=== PATIENT | female | born 1950 | race African-American/Black ===

== ENCOUNTER 2017-02-06 10:32 | Emergency (ER) | payer MEDICAID, OTHER ==
[~2017-02-06] VITALS: Ht 154.9 cm; Wt 49.0 kg
[~2017-02-06 10:32] MED LIST: ALBUTEROL SULF8.5 GM INH; AMOXICILLIN500 MG ORAL; CELEBREX100 MG ORAL; CEPHALEXIN500 MG ORAL; CYCLOBENZAPRINE10 MG ORAL; GENTAK5 ML RIGHT EYE; IBUPROFEN600 MG ORAL; NEURONTIN400 MG ORAL; NITROFURANTOIN100 M2 ORAL; NITROFURANTOIN100 MG PO; PHENAZOPYRIDIN200 MG ORAL; PROMETHAZI6.25 MG/1 ORAL; ROBAXIN-750750 MG PO; TRAMADOL HCL50 MG ORAL; VENTOLIN HFA18 GM INH; ZOLPIDEM TARTRA10 MG ORAL
[2017-02-06] MEDS ORDERED: Ketorolac 60mg Inj IM ONE (11:00)
[2017-02-06 11:26] VITALS: BP 109/72
[2017-02-06] MEDS ORDERED: Methocarbamol 750mg tab ORAL ONE (12:15)
[2017-02-06] MEDS ORDERED: IBUPROFEN600 MG ORAL (12:50)
[2017-02-06] MEDS ORDERED: ROBAXIN-750750 MG PO (12:50)
[2017-02-06 13:00] VITALS: BP 112/75
--- NOTE | 2017-02-06 13:10 | Emergency Room Report ---
History of Present Illness General Chief Complaint: Back Injury Present Illness HPI The patient is a 66-year-old female presenting for lower back pain which began 4 days prior. The patient states that she has been doing a lot of heavy lifting at home and thinks this has provoking pain. She denies any known injury. Pain is described as a 10 out of 10 sharp sensation to the lower back and does not radiate. Pain worse with movement such as bending over. She denies previous injury to the back. She has not tried any medications. She denies any other symptoms including N, V, F, chills, numbness/tingling Allergies: Coded Allergies: CODEINE (Verified Allergy, Unknown, migraine, 05/20/15) Patient History Past Medical History: see triage record Pertinent Family History: none Reviewed Nursing Documentation: PMH: Agreed, PSxH: Agreed Nursing Documentation-PMH Hx Hypertension: No - back injuries multiple Hx Pacemaker: No Hx Asthma: Yes - sleep apnea Hx COPD: No Hx Diabetes: No Hx Cancer: No Hx Gastrointestinal Problems: No Hx Cerebrovascular Accident: No Hx Seizures: No Review of Systems All Other Systems: negative except mentioned in HPI Physical Exam Vital Signs Date Time Temp Pulse Resp B/P Pulse Ox O2 Delivery O2 Flow Rate FiO2 02/06/17 10:43 98.1 69 22 109/72 98 Room Air Sp02 EP Interpretation: reviewed, normal General Appearance: no apparent distress, alert, GCS 15, non-toxic Head: normocephalic, atraumatic Eyes: bilateral eye PERRL, bilateral eye normal inspection ENT: hearing grossly normal, normal pharynx, no angioedema, normal voice, uvula midline Neck: full range of motion, no bony tend, supple/symm/no masses Gastrointestinal: normal bowel sounds, non tender, soft, non-distended, no guarding, no rebound Genitourinary: normal inspection, no CVA tenderness Musculoskeletal: normal inspection, gait/station normal, normal range of motion , tender - bilat L paraspinous muscles Neurologic: alert, oriented x3, responsive, motor strength/tone normal, sensory intact, speech normal Psychiatric: judgement/insight normal, memory normal, mood/affect normal, no suicidal/homicidal ideation Skin: normal color, no rash, warm/dry, well hydrated Lymphatic: no adenopathy Medical Decision Making PA Attestation Dr. Adams is my supervising physician. Patient management was discussed with my supervising physician Diagnostic Impression: Primary Impression: Lumbar strain Qualified Codes: S39.012A - Strain of muscle, fascia and tendon of lower back , initial encounter ER Course The patient is a 66-year-old female presenting for lower back pain Ddx considered include but not limited to lumbar strain, degenerative disease, chronic pain, narcotic dependency. PE: vitals WNL. NAD Lumbar spine: TTP over the bilat paraspinous muscles. Normal gait. No midline tenderness The patient is given Toradol and Robaxin in the ER and feels better To be discharged home with a prescription for Motrin and Robaxin. ER precautions given Last Vital Signs Date Time Temp Pulse Resp B/P Pulse Ox O2 Delivery O2 Flow Rate FiO2 02/06/17 11:26 98.1 22 109/72 98 Room Air 02/06/17 10:43 69 Status: improved Disposition: HOME, SELF-CARE Condition: Improved Scripts Methocarbamol* (ROBAXIN-750*) 750 Mg Tablet 750 MG PO TID, #21 TAB 0 Refills Prov: MAC COLE.ADaniela 02/06/17 Ibuprofen* (MOTRIN*) 600 Mg Tablet 600 MG ORAL Q8H Y for For Pain, #30 TAB 0 Refills Prov: MAC COLE P.A. 02/06/17 Referrals: NOT CHOSEN [facility]/MD,REFERRING (PCP) Patient Instructions: Back Pain, Adult Additional Instructions: I discussed my findings with the patient. All questions and concerns have been answered. Treatment and medication compliance have been addressed. I advised the patient that they need to follow up with PMD in 3-5 days. Return to ED if pain remains or worsens, numbness or tingling occurs, new rash is noticed, fever is noticed, or if needed for any reason. Patient verbalized understanding of discharge instructions. MAC COLE Feb 06, 2017 13:10
== END 2017-02-06 13:00 | disposition home or self-care (01) ==
LOC: EMR 12:55
DX: S39.012A Strain of muscle, fascia and tendon of lower back, initial encounter (principal); X50.0XXA Overexertion from strenuous movement or load, initial encounter; Y92.009 Unspecified place in unspecified non-institutional (private) residence as the place of occurrence of the external cause; Z88.6 Allergy status to analgesic agent; J45.909 Unspecified asthma, uncomplicated; G47.30 Sleep apnea, unspecified
CPT/HCPCS: 96372; 99284